=== PATIENT | male | born 1995 | race Caucasian/White ===

== ENCOUNTER 2017-07-31 11:03 | Emergency (ER) | payer BC ==
[2017-07-31 12:28] LABS: ABS Basophils 0.1 10^3/ul (0-0.2); ABS Eosinophils 0.2 10^3/ul (0-0.6); ABS Lymphocytes 1.6 10^3/ul (1.0-4.8); ABS Monocytes 0.4 10^3/ul (0-0.8); ABS Neutrophils 3.7 10^3/ul (1.5-7.7); ABS Nucleated RBC 0 10^3/ul; Eosinophil % 3.9 % (0-6); Hematocrit 43 % (42-52); Hemoglobin 14.5 g/dl (14.0-18.0); Lymphocyte % 27.2 % (25-47); Mean Corpuscular HGB Conc 34 g/dl (31-36); Mean Corpuscular Hemoglobin 30 pg (27-31); Mean Corpuscular Volume 89 fL (80-94); Mean Platelet Volume 7.8 um3 (7.4-10.4); Nucleated Red Blood Cells % 0.1; Platelet Count 201 10^3/ul (150-450); Red Blood Count 4.78 10^6/ul (4.0-5.4); Red Cell Distribution Width 13 % (10.5-15); White Blood Count 6.1 10^3/ul (3.5-10.8)
--- NOTE | 2017-07-31 13:16 | RAD ---
INDICATION: Chest pain. COMPARISON: There are no prior studies available for comparison. TECHNIQUE: A portable view of the chest was obtained. FINDINGS: Cardiac and mediastinal contours appear to be within normal limits. The lungs are clear. No pleural effusion or pneumothorax is seen. IMPRESSION: NO EVIDENCE FOR ACUTE DISEASE.
[2017-07-31 14:13] VITALS: BP 127/76
--- NOTE | 2017-07-31 17:14 | ED ---
Syncope/Near Syncope - HPI Summary HPI Summary: Patient is a 21-year-old female who presents to emergency department or intermittent chest pain x 4 episodes of syncope that occurred yesterday. Patient has no past medical history. Immunizations are up-to-date. He denies recent illness. He states that yesterday he passed out for times at his apartment. He states he was just walking when incidents occurred. He states he had some mild dizziness and nausea prior to the first syncopal episode. Incidents were not witnessed. There were no injuries sustained. Patient denies incontinence or biting her tongue. Patient notes that he had the same symptoms about 3 years ago and was checked out at that time. He states he had a Holter monitor that did not show any arrhythmias. No family history of sudden cardiac . Symptoms are moderate in severity. No current modifying factors. - History Of Current Complaint Chief Complaint: EDChestPainROMI Time Seen by Provider: 07/31/17 12:04 Hx Obtained From: Patient - Allergies/Home Medications Allergies/Adverse Reactions: Allergies Allergy/AdvReac Type Severity Reaction Status Date / Time No Known Allergies Allergy Verified 07/31/17 11:17 Home Medications: Home Medications NK [No Home Medications Reported] 07/31/17 [History Confirmed 07/31/17] PMH/Surg Hx/FS Hx/Imm Hx Previously Healthy: Yes Infectious Disease History: No Infectious Disease History: Denies: Traveled Outside the [place] in Last 30 Days - Social History Occupation: Student Lives: With Family Alcohol Use: Occasionally Substance Use Type: Reports: None Smoking Status (MU): Unknown if Ever Smoked Review of Systems Constitutional: Negative Negative: Fever, Chills Eyes: Negative ENT: Negative Positive: Chest Pain Respiratory: Negative Negative: Shortness Of Breath, Cough Gastrointestinal: Negative Negative: Abdominal Pain, Vomiting, Diarrhea, Nausea Genitourinary: Negative Musculoskeletal: Negative Skin: Negative Neurological: Negative Psychological: Normal All Other Systems Reviewed And Are Negative: Yes Physical Exam Triage Information Reviewed: Yes Vital Signs On Initial Exam: Initial Vitals Temp Pulse Resp BP Pulse Ox 99.0 F 71 16 154/88 100 07/31/17 11:13 07/31/17 11:13 07/31/17 11:13 07/31/17 11:13 07/31/17 11:13 Vital Signs Reviewed: Yes Appearance: Positive: Well-Appearing - Pt. sitting up in bed in NAD. Mother present. Skin: Positive: Warm, Dry Eyes: Positive: Normal, CHINTAN ENT: Positive: Normal ENT inspection, Pharynx normal, TMs normal Neck: Positive: Supple. Negative: Nuchal Rigidity Respiratory/Lung Sounds: Positive: Clear to Auscultation, Breath Sounds Present Cardiovascular: Positive: Normal, RRR. Negative: Murmur, Rub, Leg Edema Left, Leg Edema Right Abdomen Description: Positive: Nontender Musculoskeletal: Positive: Normal Neurological: Positive: Normal, CN Intact II-III Psychiatric: Positive: Normal Diagnostics - Vital Signs Vital Signs Temp Pulse Resp BP Pulse Ox 07/31/17 14:12 98.6 F 72 13 127/76 98 07/31/17 14:04 77 18 127/76 99 07/31/17 14:00 58 17 97 07/31/17 13:34 64 18 116/74 98 07/31/17 13:04 69 14 123/56 97 07/31/17 13:00 72 12 98 07/31/17 12:34 71 14 131/74 99 07/31/17 12:04 62 100 07/31/17 11:13 99.0 F 71 16 154/88 100 - Laboratory Lab Results: Lab Results 07/31/17 07/31/17 Range/Units 12:19 12:20 WBC 6.1 (3.5-10.8) 10^3/ul RBC 4.78 (4.0-5.4) 10^6/ul Hgb 14.5 (14.0-18.0) g/dl Hct 43 (42-52) % MCV 89 (80-94) fL MCH 30 (27-31) pg MCHC 34 (31-36) g/dl RDW 13 (10.5-15) % Plt Count 201 (150-450) 10^3/ul MPV 7.8 (7.4-10.4) um3 Neut % (Auto) 60.6 (38-83) % Lymph % (Auto) 27.2 (25-47) % [place] % (Auto) 7.4 H (0-7) % Eos % (Auto) 3.9 (0-6) % Baso % (Auto) 0.9 (0-2) % Absolute Neuts (auto) 3.7 (1.5-7.7) 10^3/ul Absolute Lymphs (auto) 1.6 (1.0-4.8) 10^3/ul Absolute Monos (auto) 0.4 (0-0.8) 10^3/ul Absolute Eos (auto) 0.2 (0-0.6) 10^3/ul Absolute Basos (auto) 0.1 (0-0.2) 10^3/ul Absolute Nucleated RBC 0 10^3/ul Nucleated RBC % 0.1 Sodium 138 L (139-145) mmol/L Potassium 3.9 (3.5-5.0) mmol/L Chloride 105 (101-111) mmol/L Carbon Dioxide 29 (22-32) mmol/L Anion Gap 4 (2-11) mmol/L BUN 20 (6-24) mg/dL Creatinine 0.92 (0.67-1.17) mg/dL Est GFR ( Amer) 131.1 (>60) Est GFR (Non-Af Amer) 102.0 (>60) BUN/Creatinine Ratio 21.7 H (8-20) Glucose 95 (70-100) mg/dL Calcium 9.6 (8.6-10.3) mg/dL Total Bilirubin 0.70 (0.2-1.0) mg/dL AST 15 (13-39) U/L ALT 16 (7-52) U/L Alkaline Phosphatase 52 (34-104) U/L Troponin I 0.01 (<0.04) ng/mL Total Protein 7.5 (6.4-8.9) g/dL Albumin 4.6 (3.2-5.2) g/dL Globulin 2.9 (2-4) g/dL Albumin/Globulin Ratio 1.6 (1-3) TSH 0.93 (0.34-5.60) mcIU/mL Result Diagrams: 07/31/17 12:19 07/31/17 12:20 Lab Statement: Any lab studies that have been ordered have been reviewed, and results considered in the medical decision making process. Course/Dx Course Of Treatment: Pt. presenting to the ER for intermittent chest pain and portably for syncopal episodes that occurred yesterday. In the ER he is asymptomatic. He is afebrile with stable vital signs. Oxygen saturation is 98 % room air which is normal. EKG done at 1113 shows a sinus rhythm of 61 bpm, normal axis, appropriate intervals,elevation or depression. Blood work is unremarkable. Chest x-ray is negative for acute findings, reading per radiology. Patient was on the monitor for over 2 hours without any arrhythmias. Case discussed with Dr. Carlos who feels pt. is safe to dc home to .u with PCP and cards. Discussed with patient and mother. They're comfortable being discharged at this time. Advised to call cardiology and PCP for close follow-up appointment. To return the er symptoms change or worsen. - Diagnoses Differential Diagnosis/HQI/PQRI: Positive: Dysrhythmia, Hyperventilation, Hypoglycemia, Hypovolemia, Myocardial Infarction, Seizure Provider Diagnoses: Syncope, Atypical chest pain Discharge - Sign-Out/Discharge Documenting (check all that apply): Discharge/Admit/Transfer - Discharge Plan Condition: Good Disposition: HOME Patient Education Materials: Syncope (ED) Referrals: Tulio Andrade MD [Primary Care Provider] - Juliana Larose MD [Medical Doctor] - Additional Instructions: Schedule a follow up appointment with cardiology and your PCP Return to ER if symptoms change or worsen - Billing Disposition and Condition Condition: GOOD Disposition: HOME
== END 2017-07-31 14:12 | disposition home or self-care (01) ==
LOC: ED 11:03
DX: R07.89 Other chest pain (principal); R55 Syncope and collapse
CPT/HCPCS: 36415; 71045; 80053; 84443; 84484; 85025; 93005; 99283